=== PATIENT | female | born 1950 | race Caucasian/White ===

== ENCOUNTER 2017-09-20 20:52 | Emergency (ER) | payer MEDICARE, OTHER ==
--- NOTE | 2017-09-20 23:42 | EDM.PDOC ---
ED HPI GENERAL MEDICAL PROBLEM - General Chief Complaint: Lower Extremity Injury/Pain Stated Complaint: RIGHT KNEE HURTS Time Seen by Provider: 09/20/17 21:03 Source of Information: Reports: Patient History Limitations: Reports: No Limitations - History of Present Illness INITIAL COMMENTS - FREE TEXT/NARRATIVE: The patient started having some pain in her right knee tonight. She did not hurt it in any way. It does feel like it is going to go out. She has never had trouble with her knee before. She felt some swelling in the back of knee earlier. She has no history of DVT or PE. She has never had a Zhang's cyst before. Onset: Sudden Duration: Hour(s): Location: Reports: Lower Extremity, Right (Knee) Quality: Reports: Sharp Severity: Moderate Improves with: Reports: Immobilization Worsens with: Reports: Movement Context: Reports: Activity (She was walking when it started hurting) Associated Symptoms: Reports: No Other Symptoms Right Knee Pain Score (Numeric/FACES): 6 - Related Data Allergies Allergy/AdvReac Type Severity Reaction Status Date / Time antibiotic Allergy Vaginitis Uncoded 09/20/17 21:06 Past Medical History Cardiovascular History: Reports: High Cholesterol, Hypertension Respiratory History: Reports: None Gastrointestinal History: Reports: GERD Neurological History: Reports: TIA - Past Surgical History Musculoskeletal Surgical History: Reports: Shoulder Surgery Social & Family History - Tobacco Use Smoking Status *Q: Never Smoker - Caffeine Use Caffeine Use: Reports: Coffee - Recreational Drug Use Recreational Drug Use: No Review of Systems - Review of Systems Review Of Systems: See Below Constitutional: Reports: No Symptoms Eyes: Reports: No Symptoms Ears: Reports: No Symptoms Nose: Reports: No Symptoms Mouth/Throat: Reports: No Symptoms Respiratory: Reports: No Symptoms Cardiovascular: Reports: No Symptoms GI/Abdominal: Reports: No Symptoms Genitourinary: Reports: No Symptoms Musculoskeletal: Reports: Other (Right knee pain and edema) ED EXAM, GENERAL - Physical Exam Exam: See Below Exam Limited By: No Limitations General Appearance: Alert, No Apparent Distress Ears: Normal External Exam Nose: Normal Inspection Head: Atraumatic, Normocephalic Neck: Normal Inspection Respiratory/Chest: No Respiratory Distress Extremities: Other (Pain upon palpation to the anterior knee with edema to the posterior knee. Good sensation and pulses distally. The knee is stable) Neurological: Alert, Oriented, No Motor/Sensory Deficits Course - Vital Signs Last Recorded V/S: Last Vital Signs Temp 98.6 F 09/20/17 21:49 Pulse 80 09/20/17 21:49 Resp 18 09/20/17 21:49 BP Pulse Ox 96 09/20/17 21:49 - Orders/Labs/Meds Orders: Active Orders 24 hr Category Date Time Status Knee Min 4V Rt [CR] Stat Exams 09/20/17 21:21 Taken VL Duplex Lwr Ext Veins Ltd Rt [US] Stat Exams 09/20/17 21:21 Taken - Re-Assessments/Exams Free Text/Narrative Re-Assessment/Exam: 09/20/17 23:41 Her x-ray shows arthritis of the knee but nothing acute. Her US shows no DVT but she does have a 6.5cm X 2.7cm X 5cm zhang's cyst. I will get her a knee brace and she does have cane with her. I will discharge her home. Departure - Departure Time of Disposition: 23:45 Disposition: Home, Self-Care 01 Condition: Good Clinical Impression: Arthritis of right knee Zhang's cyst of knee Qualifiers: Laterality: right Qualified Code(s): M71.21 - Synovial cyst of popliteal space [Zhang], right knee - Discharge Information Referrals: PCP,Not In Area [Primary Care Provider] - Casey Smiley MD [Ordering Only Provider] - 1 Week Additional Instructions: Wear the brace for comfort and support. Use the cane as needed. Take motrin or aleve for pain. You may need some hydrocodone for pain. Follow up with Dr Smiley or one of his partners at [facility] in [place]. Please return if you are worse. - My Orders Last 24 Hours: My Active Orders 09/20/17 21:21 Knee Min 4V Rt [CR] Stat VL Duplex Lwr Ext Veins Ltd Rt [US] Stat - Assessment/Plan Last 24 Hours: My Active Orders 09/20/17 21:21 Knee Min 4V Rt [CR] Stat VL Duplex Lwr Ext Veins Ltd Rt [US] Stat
--- NOTE | 2017-09-22 05:23 | CR ---
Right knee: 4 views of the right knee were obtained. Comparison: No previous study. Severe lateral joint space narrowing is noted. Lateral osteophytes are seen. Medial joint is preserved. Small joint effusion is seen. No acute fracture or other bony abnormality is identified. Impression: 1. Lateral degenerative change as noted above. Small joint effusion. Diagnostic code #3
--- NOTE | 2017-09-23 11:14 | US ---
Right lower extremity deep venous ultrasound: Duplex and color flow imaging was obtained of the right common femoral, proximal greater saphenous, superficial femoral, popliteal, posterior tibial and peroneal veins. Left common femoral vein was also evaluated. Findings: Cystic structure is seen posterior to the right knee measuring 6.5 cm in greatest dimension compatible with popliteal cyst. Normal phasic flow, augmentation and compression is seen. Impression: 1. 6.5 cm popliteal cyst within the right posterior knee. 2. No findings of deep venous thrombosis within the right lower extremity or within the left common femoral vein. Diagnostic code #3 I agree with preliminary report from [facility], finalized at 09/20/17, 11:40 PM Central Time
== END 2017-09-21 00:06 | disposition home or self-care (01) ==
LOC: JD.ED 20:52
DX: M71.21 Synovial cyst of popliteal space [Baker], right knee (principal); I10 Essential (primary) hypertension; Z88.1 Allergy status to other antibiotic agents
CPT/HCPCS: 73564-26-RT; 73564-RT; 93971-26-RT; 93971-RT; 99283; 99284-25